=== PATIENT | female | born 1945 | race Caucasian/White ===

== ENCOUNTER 2017-05-09 11:50 | Emergency (ER) | payer OTHER, BC ==
[~2017-05-09] VITALS: Ht 157.5 cm; Wt 73.0 kg
[~2017-05-09 11:50] MED LIST: CIPROFLOXACIN250 M2 PO; COL100 PO; FERROUS SULFAT324 M1 PO; FOLIC ACID1 MG PO; KEFLEX500 MG PO; LAC PO; LISINOPRIL10 MG PO; LISINOPRIL5 MG PO; LOVASTATIN40 MG PO; NITROFURANTOIN100 M2 PO; PANTOPRAZOLE SO40 M1; PAROXETINE10 M1 PO; THERAGRAN-M1 TA4 PO; ZOFRAN ODT4 MG SL
[2017-05-09 13:24] LABS: CALCIUM 8.8 mg/dL (8.5-10.1); CARBON DIOXIDE 23.3 mmol/L (21-32); CHLORIDE SERUM 109 mmol/L (98-107); GLUCOSE SERUM 113 mg/dL (74-106); POTASSIUM SERUM 3.4 mmol/L (3.5-5.1); SODIUM SERUM 142 mmol/L (136-145)
[2017-05-09 13:30] LABS: ALBUMIN 3.8 g/dL (3.4-5.0); ALKALINE PHOSPHATASE 79 U/L (46-116); ALT/SGPT 15 U/L (14-59); AST/SGOT 18 U/L (15-37); MAGNESIUM 2.1 mg/dL (1.8-2.4); TOTAL PROTEIN, SERUM 7.5 g/dL (6.4-8.2)
[2017-05-09 14:26] VITALS: BP 155/71
== END 2017-05-09 14:26 | disposition home or self-care (01) ==
LOC: ED 11:50
PROVIDERS: Emergency Medicine
DX: M72.2 Plantar fascial fibromatosis (principal); R25.2 Cramp and spasm; E87.6 Hypokalemia; J45.909 Unspecified asthma, uncomplicated; I10 Essential (primary) hypertension; Z88.0 Allergy status to penicillin
CPT/HCPCS: 36415; Q0092

== ENCOUNTER 2017-11-17 07:41 | Emergency (ER) | payer OTHER ==
[~2017-11-17] VITALS: Ht 157.5 cm; Wt 75.3 kg
[2017-11-17 08:00] VITALS: Ht 157.5 cm; Wt 75.3 kg
[2017-11-17 09:15] VITALS: BP 158/73
== END 2017-11-17 09:15 | disposition home or self-care (01) ==
LOC: ED 07:41
DX: R21 Rash and other nonspecific skin eruption (principal); J45.909 Unspecified asthma, uncomplicated; I10 Essential (primary) hypertension; Z90.49 Acquired absence of other specified parts of digestive tract; Z86.2 Personal history of diseases of the blood and blood-forming organs and certain disorders involving the immune mechanism; Z88.0 Allergy status to penicillin; Z91.041 Radiographic dye allergy status; Z88.8 Allergy status to other drugs, medicaments and biological substances

== ENCOUNTER 2018-07-08 16:06 | Emergency (ER) | payer MEDICARE ==
[~2018-07-08] VITALS: Ht 157.5 cm; Wt 72.7 kg
[~2018-07-08 16:06] MED LIST changes: +KEFLEX500 M1; -KEFLEX500 MG PO
[2018-07-08 16:17] VITALS: Ht 157.5 cm; Wt 72.7 kg
[2018-07-08 17:20] LABS: BASOPHIL % 0.3 % (0-2); PLATELET COUNT 163 x10^3mcL (130-400)
[2018-07-08 17:21] LABS: RED CELL DISTRIBUTION WIDTH 16.6 % (11.5-14.5)
[2018-07-08 17:25] LABS: CALCIUM 8.9 mg/dL (8.5-10.1); CARBON DIOXIDE 26.3 mmol/L (21-32); CHLORIDE SERUM 103 mmol/L (98-107); CREATININE SERUM 0.9 mg/dL (0.6-1.0); GLUCOSE SERUM 95 mg/dL (74-106); POTASSIUM SERUM 3.8 mmol/L (3.5-5.1); SODIUM SERUM 136 mmol/L (136-145)
[2018-07-08 17:30] LABS: ALBUMIN 3.8 g/dL (3.4-5.0); ALKALINE PHOSPHATASE 79 U/L (46-116); ALT/SGPT 16 U/L (14-59); AST/SGOT 20 U/L (15-37); BILIRUBIN TOTAL 0.8 mg/dL (0.20-1.00); TOTAL PROTEIN, SERUM 7.6 g/dL (6.4-8.2)
[2018-07-08 18:50] LABS: microscopic required? NO
[2018-07-08 18:51] LABS: urine erythrocyte NEGATIVE (NEGATIVE)
[2018-07-08 19:17] VITALS: BP 160/69
== END 2018-07-08 19:30 | disposition home or self-care (01) ==
LOC: ED 16:06
PROVIDERS: Emergency Medicine
DX: R53.1 Weakness (principal); R11.0 Nausea; R06.02 Shortness of breath; I10 Essential (primary) hypertension; J45.909 Unspecified asthma, uncomplicated; Z86.2 Personal history of diseases of the blood and blood-forming organs and certain disorders involving the immune mechanism; Z90.49 Acquired absence of other specified parts of digestive tract; Z90.89 Acquired absence of other organs; M19.90 Unspecified osteoarthritis, unspecified site; Z98.890 Other specified postprocedural states; Z88.0 Allergy status to penicillin; Z88.8 Allergy status to other drugs, medicaments and biological substances
CPT/HCPCS: 83880; J7030; Q0092

== ENCOUNTER 2018-07-09 13:06 | Inpatient (IN) | payer OTHER ==
[~2018-07-09] VITALS: Ht 157.5 cm; Wt 74.1 kg
[2018-07-09 13:20] VITALS: Ht 157.5 cm; Wt 74.1 kg
[2018-07-09 14:47] LABS: BASOPHIL % 0.4 % (0-2); PLATELET COUNT 158 x10^3mcL (130-400)
[2018-07-09 14:51] LABS: RED CELL DISTRIBUTION WIDTH 16.4 % (11.5-14.5)
[2018-07-09 14:53] LABS: CALCIUM 8.7 mg/dL (8.5-10.1); CARBON DIOXIDE 27.5 mmol/L (21-32); CHLORIDE SERUM 105 mmol/L (98-107); CREATININE SERUM 0.9 mg/dL (0.6-1.0); GLUCOSE SERUM 89 mg/dL (74-106); POTASSIUM SERUM 4.2 mmol/L (3.5-5.1); SODIUM SERUM 137 mmol/L (136-145)
[2018-07-09 14:53] LABS: microscopic required? NO
[2018-07-09 14:59] LABS: ALBUMIN 3.6 g/dL (3.4-5.0); ALKALINE PHOSPHATASE 69 U/L (46-116); ALT/SGPT 16 U/L (14-59); AST/SGOT 23 U/L (15-37); BILIRUBIN TOTAL 0.7 mg/dL (0.20-1.00); CHOLESTEROL 166 mg/dL (<200); CHOLESTEROL/HDL RATIO 4.2; HDL CHOLESTEROL 40 mg/dL (40-60); LIPASE 132 IU/L (73-393); TOTAL PROTEIN, SERUM 7.4 g/dL (6.4-8.2); TRIGLYCERIDES 155 mg/dL (<150)
[2018-07-09 15:02] LABS: urine erythrocyte NEGATIVE (NEGATIVE)
[2018-07-09 15:23] LABS: FREE T4 0.88 ng/dL (0.76-1.46); FREE THYROXINE INDEX 1.6 ug/dL (1.4-4.5); T3 TOTAL 0.99 ng/mL; T4(THYROXINE) 5.1 ug/dL (4.7-13.3)
[2018-07-09 16:51] LABS: MAGNESIUM 1.9 mg/dL (1.8-2.4); PHOSPHOROUS 4.3 mg/dL (2.5-4.9)
[2018-07-09 16:54] LABS: AMPHETAMINE QUAL UR NONE DETECTED (See below)
[2018-07-09 20:40] VITALS: BP 145/78
[2018-07-09 20:58] VITALS: BP 139/55
[2018-07-09 23:51] VITALS: BP 145/78
[2018-07-10 05:28] VITALS: BP 116/68
[2018-07-10 06:33] LABS: CARBON DIOXIDE 24.3 mmol/L (21-32); CHLORIDE SERUM 112 mmol/L (98-107); CREATININE SERUM 0.8 mg/dL (0.6-1.0); GLUCOSE SERUM 103 mg/dL (74-106); POTASSIUM SERUM 4.1 mmol/L (3.5-5.1); SODIUM SERUM 146 mmol/L (136-145)
[2018-07-10 06:47] LABS: BASOPHIL % 0.1 % (0-2); PLATELET COUNT 140 x10^3mcL (130-400)
[2018-07-10 09:41] VITALS: BP 161/49
[2018-07-10 13:33] VITALS: BP 161/49
[2018-07-10] MEDS ORDERED: ASP325 PO (13:56)
[2018-07-10] MEDS ORDERED: ZES10 PO (13:56)
[2018-07-10] MEDS ORDERED: LIPI10 PO (13:56)
[2018-07-10 14:00] VITALS: BP 141/59
== END 2018-07-10 14:50 | disposition short-term general hospital (02) | DRG 66 ==
LOC: ED 13:06 → MU 16:18
PROVIDERS: Internal Medicine; Specialist
DX: I63.9 Cerebral infarction, unspecified (principal); G90.9 Disorder of the autonomic nervous system, unspecified; J45.909 Unspecified asthma, uncomplicated; I10 Essential (primary) hypertension; D53.9 Nutritional anemia, unspecified; E78.5 Hyperlipidemia, unspecified; D50.9 Iron deficiency anemia, unspecified; M19.90 Unspecified osteoarthritis, unspecified site; Z68.29 Body mass index [BMI] 29.0-29.9, adult; Z88.0 Allergy status to penicillin; Z88.8 Allergy status to other drugs, medicaments and biological substances; Z90.710 Acquired absence of both cervix and uterus; Z90.49 Acquired absence of other specified parts of digestive tract
CPT/HCPCS: 83880; 84439; 94150; 97110-GP; J2405; J7030; J7620; J8597; Q0092

== ENCOUNTER 2018-08-13 11:35 | Emergency (ER) | payer MEDICARE ==
[~2018-08-13] VITALS: Ht 157.5 cm; Wt 74.4 kg
[~2018-08-13 11:35] MED LIST changes: +ASP325 PO; +LIPI10 PO; +ZES10 PO
[2018-08-13 11:41] VITALS: Ht 157.5 cm; Wt 74.4 kg
[2018-08-13 12:29] VITALS: BP 160/51
== END 2018-08-13 12:29 | disposition home or self-care (01) ==
LOC: ED 11:35
DX: S46.912A Strain of unspecified muscle, fascia and tendon at shoulder and upper arm level, left arm, initial encounter (principal); J45.909 Unspecified asthma, uncomplicated; I10 Essential (primary) hypertension; Z86.2 Personal history of diseases of the blood and blood-forming organs and certain disorders involving the immune mechanism; M19.90 Unspecified osteoarthritis, unspecified site; Z90.49 Acquired absence of other specified parts of digestive tract; Z90.89 Acquired absence of other organs; Z88.0 Allergy status to penicillin; Z88.8 Allergy status to other drugs, medicaments and biological substances; X58.XXXA Exposure to other specified factors, initial encounter; Y93.89 Activity, other specified; Y92.89 Other specified places as the place of occurrence of the external cause; Y99.8 Other external cause status

== ENCOUNTER 2018-09-19 13:02 | Inpatient (IN) | payer MEDICARE ==
[~2018-09-19] VITALS: Ht 157.5 cm; Wt 73.7 kg
[2018-09-19 13:49] LABS: BASOPHIL % 0.3 % (0-2); PLATELET COUNT 196 x10^3mcL (130-400)
[2018-09-19 13:50] LABS: RED CELL DISTRIBUTION WIDTH 18.4 % (11.5-14.5)
[2018-09-19 14:05] LABS: CALCIUM 8.4 mg/dL (8.5-10.1); CARBON DIOXIDE 23.7 mmol/L (21-32); CHLORIDE SERUM 99 mmol/L (98-107); CREATININE SERUM 1.4 mg/dL (0.6-1.0); GLUCOSE SERUM 83 mg/dL (74-106); POTASSIUM SERUM 4.2 mmol/L (3.5-5.1); SODIUM SERUM 131 mmol/L (136-145)
[2018-09-19 14:09] LABS: ALBUMIN 3.7 g/dL (3.4-5.0); ALKALINE PHOSPHATASE 81 U/L (46-116); ALT/SGPT 20 U/L (14-59); AST/SGOT 26 U/L (15-37); BILIRUBIN TOTAL 0.52 mg/dL (0.20-1.00); TOTAL PROTEIN, SERUM 7.7 g/dL (6.4-8.2)
[2018-09-19 17:14] VITALS: BP 155/57
[2018-09-19 17:23] VITALS: Ht 157.5 cm; Wt 73.7 kg
[2018-09-19 17:44] VITALS: BP 155/57
[2018-09-19 19:52] LABS: microscopic required? NO
[2018-09-19 20:04] LABS: UA SPECIFIC GRAVITY <=1.005 (1.005-1.035); urine erythrocyte NEGATIVE (NEGATIVE)
[2018-09-19 20:11] LABS: AMPHETAMINE QUAL UR NONE DETECTED (See below)
[2018-09-19 20:37] VITALS: BP 131/58
[2018-09-19 21:07] LABS: PHOSPHOROUS 3.8 mg/dL (2.5-4.9)
[2018-09-19 21:08] LABS: CHOLESTEROL/HDL RATIO 4.8
[2018-09-19 21:15] LABS: FREE T4 1.03 ng/dL (0.76-1.46); FREE THYROXINE INDEX 2.4 ug/dL (1.4-4.5); T4(THYROXINE) 7.6 ug/dL (4.7-13.3)
[2018-09-19 21:36] LABS: T3 TOTAL 0.91 ng/mL
[2018-09-20 05:24] VITALS: BP 140/55
[2018-09-20 06:17] LABS: CALCIUM 8.4 mg/dL (8.5-10.1); CARBON DIOXIDE 19.3 mmol/L (21-32); CHLORIDE SERUM 106 mmol/L (98-107); CREATININE SERUM 1.3 mg/dL (0.6-1.0); GLUCOSE SERUM 184 mg/dL (74-106); MAGNESIUM 1.8 mg/dL (1.8-2.4); PHOSPHOROUS 3.1 mg/dL (2.5-4.9); POTASSIUM SERUM 4.7 mmol/L (3.5-5.1); SODIUM SERUM 137 mmol/L (136-145)
[2018-09-20 08:43] LABS: RED CELL DISTRIBUTION WIDTH 18.6 % (11.5-14.5)
[2018-09-20 09:16] VITALS: BP 142/54
[2018-09-20] MEDS ORDERED: COZAAR100 MG PO (09:29)
[2018-09-20 10:15] VITALS: BP 140/56
[2018-09-20 12:33] LABS: BASOPHIL % 0.1 % (0-2); PLATELET COUNT 135 x10^3mcL (130-400); RED CELL DISTRIBUTION WIDTH 18.1 % (11.5-14.5)
[2018-09-20 14:24] VITALS: BP 131/50
[2018-09-20 14:52] LABS: BAND NEUTROPHIL 11 % (0-10); MONOCYTE 3 % (0-7); SEGMENTED NEUTROPHILS 52 % (37-75)
[2018-09-20 14:53] LABS: rbc morphology (normal/abnorm) ABNORMAL (NORMAL)
[2018-09-20 14:55] LABS: PLATELET MORPHOLOGY PLATELETS DECREASED
[2018-09-20 15:43] LABS: PLATELET COUNT 130 x10^3mcL (130-400)
[2018-09-20 18:43] VITALS: BP 125/57
[2018-09-20 20:18] VITALS: BP 138/60
[2018-09-21 04:03] LABS: BASOPHIL % 0 % (0-2); PLATELET COUNT 127 x10^3mcL (130-400); RED CELL DISTRIBUTION WIDTH 17.9 % (11.5-14.5)
[2018-09-21 04:30] LABS: CARBON DIOXIDE 22.8 mmol/L (21-32); CHLORIDE SERUM 105 mmol/L (98-107); CREATININE SERUM 1.1 mg/dL (0.6-1.0); GLUCOSE SERUM 141 mg/dL (74-106); MAGNESIUM 2.1 mg/dL (1.8-2.4); PHOSPHOROUS 3.2 mg/dL (2.5-4.9); POTASSIUM SERUM 4.3 mmol/L (3.5-5.1); SODIUM SERUM 137 mmol/L (136-145)
[2018-09-21 05:21] VITALS: BP 127/46
[2018-09-21 08:30] VITALS: BP 134/46
[2018-09-21 17:00] VITALS: BP 140/67
[2018-09-21 20:27] VITALS: BP 144/53
[2018-09-22 05:14] LABS: PLATELET COUNT 137 x10^3mcL (130-400)
[2018-09-22 05:17] LABS: BASOPHIL % 0 % (0-2); RED CELL DISTRIBUTION WIDTH 18.3 % (11.5-14.5)
[2018-09-22 05:24] LABS: CALCIUM 8.3 mg/dL (8.5-10.1); CARBON DIOXIDE 22.2 mmol/L (21-32); CHLORIDE SERUM 106 mmol/L (98-107); CREATININE SERUM 1.1 mg/dL (0.6-1.0); GLUCOSE SERUM 126 mg/dL (74-106); MAGNESIUM 2.2 mg/dL (1.8-2.4); PHOSPHOROUS 2.9 mg/dL (2.5-4.9); POTASSIUM SERUM 4.4 mmol/L (3.5-5.1); SODIUM SERUM 138 mmol/L (136-145)
[2018-09-22 05:30] VITALS: BP 146/64
[2018-09-22 09:50] VITALS: BP 141/68
[2018-09-22 10:22] VITALS: BP 146/64
[2018-09-22 17:10] VITALS: BP 142/65
[2018-09-22 21:16] VITALS: BP 146/66
[2018-09-23 05:35] VITALS: BP 127/59
[2018-09-23 06:23] LABS: PLATELET COUNT 132 x10^3mcL (130-400)
[2018-09-23 06:31] LABS: CALCIUM 8.4 mg/dL (8.5-10.1); CARBON DIOXIDE 22.5 mmol/L (21-32); CHLORIDE SERUM 106 mmol/L (98-107); CREATININE SERUM 1.1 mg/dL (0.6-1.0); GLUCOSE SERUM 125 mg/dL (74-106); MAGNESIUM 2.3 mg/dL (1.8-2.4); PHOSPHOROUS 3.2 mg/dL (2.5-4.9); POTASSIUM SERUM 4.3 mmol/L (3.5-5.1); SODIUM SERUM 139 mmol/L (136-145)
[2018-09-23 07:12] LABS: BASOPHIL % 0 % (0-2); RED CELL DISTRIBUTION WIDTH 18.4 % (11.5-14.5)
[2018-09-23 08:01] VITALS: BP 141/63
[2018-09-23 12:05] VITALS: BP 129/57
[2018-09-23 16:23] VITALS: BP 145/67
[2018-09-23 21:00] VITALS: BP 152/50
[2018-09-24 05:37] VITALS: BP 108/57
[2018-09-24 05:41] VITALS: BP 151/64
[2018-09-24 06:42] LABS: CALCIUM 8.3 mg/dL (8.5-10.1); CARBON DIOXIDE 24.4 mmol/L (21-32); CHLORIDE SERUM 106 mmol/L (98-107); CREATININE SERUM 1.2 mg/dL (0.6-1.0); GLUCOSE SERUM 116 mg/dL (74-106); SODIUM SERUM 139 mmol/L (136-145)
[2018-09-24 07:13] LABS: PLATELET COUNT 153 x10^3mcL (130-400); RED CELL DISTRIBUTION WIDTH 18.7 % (11.5-14.5)
[2018-09-24 08:02] VITALS: BP 137/55
[2018-09-24 11:13] LABS: BAND NEUTROPHIL 4 % (0-10); BASOPHIL 0 % (0-2); MONOCYTE 4 % (0-7); SEGMENTED NEUTROPHILS 81 % (37-75)
[2018-09-24 11:15] LABS: PLATELET MORPHOLOGY LARGE PLATELET SEEN; rbc morphology (normal/abnorm) ABNORMAL (NORMAL)
[2018-09-24 12:38] VITALS: BP 144/77
[2018-09-24 16:58] VITALS: BP 150/67
[2018-09-24 21:24] VITALS: BP 157/65
[2018-09-25 06:14] VITALS: BP 147/60
[2018-09-25 08:38] VITALS: BP 148/62
[2018-09-25 16:40] VITALS: BP 169/65
[2018-09-25 18:24] VITALS: BP 169/65
[2018-09-25 23:20] VITALS: BP 138/60
[2018-09-26 06:12] VITALS: BP 135/55
[2018-09-26 07:00] LABS: CALCIUM 8.1 mg/dL (8.5-10.1); CARBON DIOXIDE 26.1 mmol/L (21-32); CHLORIDE SERUM 104 mmol/L (98-107); CREATININE SERUM 1.1 mg/dL (0.6-1.0); GLUCOSE SERUM 125 mg/dL (74-106); MAGNESIUM 2.7 mg/dL (1.8-2.4); POTASSIUM SERUM 4.4 mmol/L (3.5-5.1); SODIUM SERUM 139 mmol/L (136-145)
[2018-09-26 07:46] LABS: PLATELET COUNT 125 x10^3mcL (130-400); RED CELL DISTRIBUTION WIDTH 19.1 % (11.5-14.5)
[2018-09-26 08:30] VITALS: BP 146/55
[2018-09-26 09:13] LABS: BAND NEUTROPHIL 0 % (0-10); BASOPHIL 0 % (0-2); MONOCYTE 5 % (0-7); SEGMENTED NEUTROPHILS 84 % (37-75)
[2018-09-26 09:15] LABS: PLATELET MORPHOLOGY PLATELETS DECREASED; rbc morphology (normal/abnorm) ABNORMAL (NORMAL)
[2018-09-26 17:15] VITALS: BP 135/56
[2018-09-26 21:09] VITALS: BP 110/65
[2018-09-27 06:11] VITALS: BP 147/63
[2018-09-27 06:50] LABS: CALCIUM 8.1 mg/dL (8.5-10.1); CARBON DIOXIDE 27.9 mmol/L (21-32); CHLORIDE SERUM 104 mmol/L (98-107); CREATININE SERUM 1.1 mg/dL (0.6-1.0); GLUCOSE SERUM 112 mg/dL (74-106); POTASSIUM SERUM 4.5 mmol/L (3.5-5.1); SODIUM SERUM 137 mmol/L (136-145)
[2018-09-27 07:18] LABS: BASOPHIL % 0.1 % (0-2); PLATELET COUNT 110 x10^3mcL (130-400); RED CELL DISTRIBUTION WIDTH 18.5 % (11.5-14.5)
[2018-09-27 09:45] VITALS: BP 133/42
[2018-09-27 17:48] VITALS: BP 132/48
[2018-09-27 20:47] VITALS: BP 132/53
[2018-09-28 06:04] VITALS: BP 137/55
[2018-09-28 09:25] VITALS: BP 133/50
[2018-09-28] MEDS ORDERED: SINGULAIR10 MG (09:34)
[2018-09-28] MEDS ORDERED: AEROECLIPSE II1 EACH MC (09:34)
[2018-09-28] MEDS ORDERED: LEVALBUTER0.63 MG/1 IH (09:34)
[2018-09-28] MEDS ORDERED: PREDNISONE20 MG PO (09:37)
[2018-09-28] MEDS ORDERED: BREO ELLIPTA1 POW IH (09:37)
[2018-09-28 13:08] VITALS: BP 133/50
[2018-09-28 16:54] VITALS: BP 133/47
== END 2018-09-28 18:49 | disposition home or self-care (01) | DRG 189 ==
LOC: ED 13:02 → MU 16:04
PROVIDERS: Emergency Medicine; Family Medicine; General Practice; ADMIT Internal Medicine
DX: J96.00 Acute respiratory failure, unspecified whether with hypoxia or hypercapnia (principal); J45.21 Mild intermittent asthma with (acute) exacerbation; E87.1 Hypo-osmolality and hyponatremia; E87.2 Acidosis; N17.9 Acute kidney failure, unspecified; E86.0 Dehydration; I10 Essential (primary) hypertension; E83.51 Hypocalcemia; F41.9 Anxiety disorder, unspecified; D53.9 Nutritional anemia, unspecified; Z68.29 Body mass index [BMI] 29.0-29.9, adult; M19.90 Unspecified osteoarthritis, unspecified site
CPT/HCPCS: 36600; 78598; 83880; 84439; 85378; 87804; 94150; 97110-GP; 97112-GP; 97116-GP; 97530-GP; A9540; J0132; J1644; J1940; J1956; J2920; J2930; J3490; J7030; J7050; J7613; J7620; Q0092

== ENCOUNTER 2018-10-01 13:40 | Emergency (ER) | payer MEDICARE ==
[~2018-10-01] VITALS: Ht 157.5 cm; Wt 72.6 kg
[~2018-10-01 13:40] MED LIST changes: +AEROECLIPSE II1 EACH MC; +BREO ELLIPTA1 POW IH; +COZAAR100 MG PO; +LEVALBUTER0.63 MG/1 IH; +PREDNISONE20 MG PO; +SINGULAIR10 MG
[2018-10-01 13:50] VITALS: Ht 157.5 cm; Wt 72.6 kg
[2018-10-01 17:30] VITALS: BP 125/64
== END 2018-10-01 17:30 | disposition home or self-care (01) ==
LOC: ED 13:40
DX: J45.901 Unspecified asthma with (acute) exacerbation (principal); I10 Essential (primary) hypertension; M19.90 Unspecified osteoarthritis, unspecified site; Z87.01 Personal history of pneumonia (recurrent); Z88.0 Allergy status to penicillin; Z91.041 Radiographic dye allergy status; Z88.8 Allergy status to other drugs, medicaments and biological substances; Z90.49 Acquired absence of other specified parts of digestive tract; Z90.710 Acquired absence of both cervix and uterus; Z87.09 Personal history of other diseases of the respiratory system
CPT/HCPCS: J7613